=== PATIENT | female | born 1965 | race African-American/Black ===

== ENCOUNTER 2016-12-13 11:40 | Emergency (ER) | payer OTHER ==
[~2016-12-13] VITALS: Ht 170.2 cm; Wt 68.0 kg
[~2016-12-13 11:40] MED LIST: BENAZEPRIL; [UNRECOGNIZED DRUG - REMARK]
[2016-12-13 12:58] VITALS: BP 160/72
== END 2016-12-13 12:58 | disposition home or self-care (01) ==
LOC: ER 12:49
DX: B35.6 Tinea cruris (principal); I10 Essential (primary) hypertension
CPT/HCPCS: 99283

== ENCOUNTER 2017-05-13 01:08 | Emergency (ER) | payer OTHER ==
[~2017-05-13] VITALS: Ht 167.6 cm; Wt 73.0 kg
[2017-05-13] MEDS ORDERED: HYDROCODONE/ACETAMINOPHEN 5/325MG TABLET ONE (05:14)
[2017-05-13] MEDS ORDERED: HYDROCODONE/ACETAMINOPHEN 5/325MG TABLET PO ONE (05:15)
[2017-05-13 05:35] VITALS: BP 144/78
== END 2017-05-13 05:35 | disposition home or self-care (01) ==
LOC: ER 01:08
DX: K64.4 Residual hemorrhoidal skin tags (principal); I10 Essential (primary) hypertension; E66.9 Obesity, unspecified; Z68.26 Body mass index [BMI] 26.0-26.9, adult
CPT/HCPCS: 99283